=== PATIENT | female | born 1945 | race Caucasian/White ===

== ENCOUNTER 2023-05-13 09:11 | Inpatient (IN) | payer OTHER ==
[2023-05-13 09:42] LABS: #Eosinphils 0.2 thou/uL (0.0-0.7); #Monocytes 0.6 thou/uL (0.11-0.59); %Basophils 0.5 % (0.0-1.0); %Eosinophils 2.6 % (0.0-10.0); %Lymphocytes 21.3 % (21.0-51.0); %Monocytes 6.5 % (0.0-10.0); %Neutrophils 68.2 % (42.0-75.0); Hemoglobin 12.6 g/dL (12.0-16.0); Mean Corpuscular HGB CONC 32.3 g/dL (32.0-36.0); Mean Corpuscular Hemoglobin 30.4 pg (27.0-31.0); Mean Platelet Volume 10.1 fL (7.4-10.4); Platelet Count 261 10x3/uL (130-400); RBC Distribution Width 12.6 % (11.5-14.5); Red Blood Cell (RBC) Count 4.15 mill/uL (4.20-5.40); White Blood Cell (WBC) Count 8.8 10x3/uL (4.8-10.8)
[2023-05-13] MEDS ORDERED: Meclizine HCl 25 MG TAB ONE (10:23)
[2023-05-13 10:53] LABS: ALT (SGPT) 8 U/L (8-55); AST (SGOT) 11 U/L (5-34); Albumin 4.1 g/dL (3.4-4.8); Alkaline Phosphatase 88 U/L (40-110); Anion Gap 15 mmol/L (10-20); BUN (Urea Nitrogen) 18 mg/dL (9.8-20.1); Bilirubin, Total 0.4 mg/dL (0.2-1.2); Calc. Creatinine Clearance 0 mL/min (70-130); Calcium 9.8 mg/dL (7.8-10.44); Carbon Dioxide 23 mmol/L (23-31); Estimated GFR 48; Globulin 3.2 g/dL (2.4-3.5); Glucose 117 mg/dL (83-110); Potassium 4.3 mmol/L (3.5-5.1); Protein, Total 7.3 g/dL (5.8-8.1)
[2023-05-13] MEDS ORDERED: Iopamidol-370 76% 500 ML MDV (1 ML CHARGE) ONE (10:55)
[2023-05-13 11:01] LABS: Chloride 105 mmol/L (98-107); Sodium 139 mmol/L (136-145)
[2023-05-13 11:41] LABS: Troponin I Less than 0.010 ng/mL (< 0.028)
[2023-05-13 12:49] LABS: Bacteria/HPF None Seen HPF (None Seen); Bilirubin Negative (Negative); Blood, Urine Negative (Negative); CAUTI Indications for Culture Alt mental st,lethar; Clarity Clear (Clear); Glucose, Urine (Dipstick) Normal (Negative); Ketone, Urine 10 mg/dL (Negative); Leukocyte 500 Leu/uL (Negative); Nitrite Negative (Negative); Protein, Urine (Dipstick) Negative (Neg-Trace); RBC/HPF 0-3 HPF (0-3); Specific Gravity, Urine 1.028 (1.002-1.036); Squamous Epithelial 0-3 HPF (0-3); Urobilinogen Normal mg/dL (Less than 2); pH, Urine 6.5 (5.0-9.0)
[2023-05-13 12:54] LABS: Urine Culture Reflex Yes Yes
[2023-05-13] MEDS ORDERED: Ondansetron ODT 4 MG TAB PO PRN (13:06)
[2023-05-13] MEDS ORDERED: Ondansetron PF 4 MG/2 ML Vial IVP PRN (13:06)
[2023-05-13] MEDS ORDERED: Meclizine HCl 25 MG TAB PO PRN (13:10)
[2023-05-13] MEDS ORDERED: Sodium Chloride 0.9% 1,000 ML IV SCH (13:15)
[2023-05-13] MEDS ORDERED: Aspirin 81 mg Enteric Coated Tablet PO SCH (13:15)
[2023-05-13] MEDS ORDERED: HumaLOG 300 UNITS/3 ML VIAL SC PRN ×2 (13:23)
[2023-05-13] MEDS ORDERED: Dextrose 5% in Water 1,000 ML IV PRN (13:23)
[2023-05-13] MEDS ORDERED: Glucagon 1 MG/ML KIT IM PRN (13:23)
[2023-05-13] MEDS ORDERED: Dextrose 50% Abboject 50 ML SYRINGE SLOW IVP PRN (13:23)
[2023-05-13 13:45] LABS: Hemoglobin A1c 5.5 % (4.0-6.0)
[2023-05-13] MEDS ORDERED: Aspirin Chewable 81 MG TAB ONE (14:51)
[2023-05-13 18:41] VITALS: BMI 26.6
[2023-05-13] MEDS ORDERED: Labetalol HCl 100 MG/20 ML VIAL SLOW IVP SCH (20:30)
[2023-05-13] MEDS: Acetaminophen 325 MG TAB PO PRN (20:51)
[2023-05-13] MEDS: Atorvastatin Calcium 40 MG TAB PO SCH (20:52)
[2023-05-14 04:48] LABS: #Basophils 0.1 thou/uL (0.0-0.2); #Eosinphils 0.3 thou/uL (0.0-0.7); #Monocytes 0.8 thou/uL (0.11-0.59); #Neutrophils 3.3 thou/uL (1.40-6.50); %Basophils 0.7 % (0.0-1.0); %Eosinophils 3.5 % (0.0-10.0); %Lymphocytes 40.9 % (21.0-51.0); %Monocytes 10.2 % (0.0-10.0); %Neutrophils 44.3 % (42.0-75.0); Hematocrit 35.4 % (36.0-47.0); Hemoglobin 11.5 g/dL (12.0-16.0); Mean Corpuscular HGB CONC 32.5 g/dL (32.0-36.0); Mean Corpuscular Hemoglobin 30.3 pg (27.0-31.0); Mean Corpuscular Volume 93.2 fl (78.0-98.0); Platelet Count 221 10x3/uL (130-400); RBC Distribution Width 12.7 % (11.5-14.5); White Blood Cell (WBC) Count 7.3 10x3/uL (4.8-10.8)
[2023-05-14 05:15] LABS: Anion Gap 15 mmol/L (10-20); BUN (Urea Nitrogen) 19 mg/dL (9.8-20.1); Calc. Creatinine Clearance 45 mL/min (70-130); Calcium 8.8 mg/dL (7.8-10.44); Carbon Dioxide 21 mmol/L (23-31); Cardiac Risk 3.8 (Less than 4.5); Chloride 108 mmol/L (98-107); Cholesterol 137 mg/dl (< 200 Desired); Estimated GFR 51; Glucose 99 mg/dL (83-110); HDL Cholesterol 36 mg/dL (>60 Neg Risk); LDL Cholesterol, Calculated 67 mg/dL; Potassium 3.8 mmol/L (3.5-5.1); Sodium 140 mmol/L (136-145); Triglycerides 170 mg/dL (Less than 150)
[2023-05-14] MEDS: Aspirin 81 mg Enteric Coated Tablet PO SCH (08:34)
[2023-05-14] MEDS: Lisinopril 10 MG TAB PO SCH (08:34)
[2023-05-14] MEDS: Acetaminophen 325 MG TAB PO PRN ×2 (11:53→20:46)
[2023-05-14 18:27] LABS: Troponin I Less than 0.010 ng/mL (< 0.028)
[2023-05-14] MEDS: Atorvastatin Calcium 40 MG TAB PO SCH (20:47)
[2023-05-14 20:57] LABS: Troponin I Less than 0.010 ng/mL (< 0.028)
[2023-05-15 05:30] LABS: #Basophils 0.1 thou/uL (0.0-0.2); #Eosinphils 0.3 thou/uL (0.0-0.7); #Monocytes 0.6 thou/uL (0.11-0.59); #Neutrophils 2.8 thou/uL (1.40-6.50); %Basophils 0.8 % (0.0-1.0); %Eosinophils 4.9 % (0.0-10.0); %Lymphocytes 42.8 % (21.0-51.0); %Monocytes 8.6 % (0.0-10.0); %Neutrophils 42.4 % (42.0-75.0); Hemoglobin 11.4 g/dL (12.0-16.0); Mean Corpuscular HGB CONC 32.6 g/dL (32.0-36.0); Mean Corpuscular Hemoglobin 30.8 pg (27.0-31.0); Mean Corpuscular Volume 94.6 fl (78.0-98.0); Platelet Count 181 10x3/uL (130-400); RBC Distribution Width 12.8 % (11.5-14.5); White Blood Cell (WBC) Count 6.5 10x3/uL (4.8-10.8)
[2023-05-15 06:01] LABS: Anion Gap 14 mmol/L (10-20); BUN (Urea Nitrogen) 15 mg/dL (9.8-20.1); Calc. Creatinine Clearance 59 mL/min (70-130); Calcium 8.7 mg/dL (7.8-10.44); Carbon Dioxide 22 mmol/L (23-31); Chloride 108 mmol/L (98-107); Estimated GFR 72; Glucose 87 mg/dL (83-110); Potassium 4.4 mmol/L (3.5-5.1); Sodium 140 mmol/L (136-145)
[2023-05-15] MEDS: Aspirin 81 mg Enteric Coated Tablet PO SCH (11:44)
[2023-05-15] MEDS: Lisinopril 10 MG TAB PO SCH (11:44)
[2023-05-15] MEDS ORDERED: Regadenoson 0.4 MG/5 ML SYRINGE ONE (13:30)
[2023-05-15] MEDS: Atorvastatin Calcium 40 MG TAB PO SCH (20:04)
[2023-05-15] MEDS: Acetaminophen 325 MG TAB PO PRN (23:59)
[2023-05-16 05:32] LABS: #Basophils 0.1 thou/uL (0.0-0.2); #Eosinphils 0.3 thou/uL (0.0-0.7); #Monocytes 0.6 thou/uL (0.11-0.59); %Basophils 0.7 % (0.0-1.0); %Eosinophils 4.7 % (0.0-10.0); %Lymphocytes 44.6 % (21.0-51.0); %Monocytes 7.9 % (0.0-10.0); %Neutrophils 41.5 % (42.0-75.0); Hematocrit 36.9 % (36.0-47.0); Hemoglobin 11.9 g/dL (12.0-16.0); Mean Corpuscular HGB CONC 32.2 g/dL (32.0-36.0); Mean Corpuscular Hemoglobin 29.9 pg (27.0-31.0); Mean Corpuscular Volume 92.7 fl (78.0-98.0); Mean Platelet Volume 10.1 fL (7.4-10.4); Platelet Count 240 10x3/uL (130-400); RBC Distribution Width 12.5 % (11.5-14.5); Red Blood Cell (RBC) Count 3.98 mill/uL (4.20-5.40); White Blood Cell (WBC) Count 7.1 10x3/uL (4.8-10.8)
[2023-05-16 05:56] LABS: Anion Gap 13 mmol/L (10-20); BUN (Urea Nitrogen) 18 mg/dL (9.8-20.1); Calc. Creatinine Clearance 49 mL/min (70-130); Calcium 9.2 mg/dL (7.8-10.44); Carbon Dioxide 24 mmol/L (23-31); Chloride 106 mmol/L (98-107); Estimated GFR 57; Glucose 96 mg/dL (83-110); Sodium 139 mmol/L (136-145)
[2023-05-16] MEDS: Lisinopril 10 MG TAB PO SCH (09:44)
[2023-05-16] MEDS: Aspirin 81 mg Enteric Coated Tablet PO SCH (09:44)
[2023-05-16] MEDS: Atorvastatin Calcium 40 MG TAB PO SCH (20:19)
[2023-05-16] MEDS: Acetaminophen 325 MG TAB PO PRN (20:25)
[2023-05-17 04:35] LABS: #Basophils 0.1 thou/uL (0.0-0.2); #Eosinphils 0.4 thou/uL (0.0-0.7); #Monocytes 0.7 thou/uL (0.11-0.59); %Basophils 0.7 % (0.0-1.0); %Eosinophils 5.1 % (0.0-10.0); %Lymphocytes 45.5 % (21.0-51.0); %Monocytes 8.5 % (0.0-10.0); %Neutrophils 39.4 % (42.0-75.0); Hematocrit 37.1 % (36.0-47.0); Hemoglobin 12.3 g/dL (12.0-16.0); Mean Corpuscular HGB CONC 33.2 g/dL (32.0-36.0); Mean Corpuscular Hemoglobin 30.7 pg (27.0-31.0); Mean Corpuscular Volume 92.5 fl (78.0-98.0); Mean Platelet Volume 10.1 fL (7.4-10.4); Platelet Count 258 10x3/uL (130-400); RBC Distribution Width 12.5 % (11.5-14.5); Red Blood Cell (RBC) Count 4.01 mill/uL (4.20-5.40); White Blood Cell (WBC) Count 7.6 10x3/uL (4.8-10.8)
[2023-05-17 05:00] LABS: Anion Gap 13 mmol/L (10-20); BUN (Urea Nitrogen) 22 mg/dL (9.8-20.1); Calc. Creatinine Clearance 55 mL/min (70-130); Calcium 9.5 mg/dL (7.8-10.44); Carbon Dioxide 25 mmol/L (23-31); Chloride 105 mmol/L (98-107); Estimated GFR 65; Glucose 95 mg/dL (83-110); Potassium 3.8 mmol/L (3.5-5.1); Sodium 139 mmol/L (136-145)
[2023-05-17] MEDS: Lisinopril 10 MG TAB PO SCH (06:38)
[2023-05-17] MEDS: Aspirin 81 mg Enteric Coated Tablet PO SCH (06:38)
[2023-05-17] MEDS ORDERED: fentaNYL 50 mcg/mL 1 mL Vial ONE (08:46)
[2023-05-17] MEDS ORDERED: Midazolam HCl 2 mg/2 ml Vial ONE (08:46)
[2023-05-17] MEDS ORDERED: Lidocaine 1% (PF) 30 ML VIAL ONE (08:46)
[2023-05-17] MEDS ORDERED: Heparin 10,000 UNITS/ 10 ML VIAL ONE (08:46)
[2023-05-17] MEDS ORDERED: Nitroglycerin 50 MG/250 ML BOT 0 ML ONE (08:47)
[2023-05-17] MEDS ORDERED: Protamine Sulfate 50 MG/5 ML VIAL ONE (09:26)
[2023-05-17] MEDS ORDERED: Sodium Chloride 0.9% 200 ML IV PRN (09:40)
[2023-05-17] MEDS ORDERED: Acetaminophen/Codeine 30-300mg Tablet PO PRN ×2 (09:40)
[2023-05-17] MEDS ORDERED: Nitroglycerin 0.4 MG TAB (25 Tab Bottle) SL PRN (09:40)
[2023-05-17] MEDS ORDERED: Sodium Chloride 0.9% 1,000 ML IV SCH (09:45)
[2023-05-17] MEDS: Acetaminophen 325 MG TAB PO PRN (12:12)
[2023-05-17] MEDS: Metoprolol Tartrate 50 MG TAB PO SCH (20:13)
[2023-05-17] MEDS: Atorvastatin Calcium 20 MG TAB PO SCH (20:13)
[2023-05-18] MEDS: Aspirin 81 mg Enteric Coated Tablet PO SCH (08:34)
[2023-05-18] MEDS: Metoprolol Tartrate 50 MG TAB PO SCH ×2 (08:34→21:16)
[2023-05-18] MEDS: LevoFLOXacin 750 mg/D5W 750 MG in Premix 1 BAG IVPB SCH (14:07)
[2023-05-18] MEDS: Atorvastatin Calcium 20 MG TAB PO SCH (21:16)
[2023-05-18] MEDS ORDERED: Ondansetron PF 4 MG/2 ML Vial IVP SCH (23:30)
[2023-05-19] MEDS: Metoprolol Tartrate 50 MG TAB PO SCH ×2 (09:35→20:25)
[2023-05-19] MEDS: Aspirin 81 mg Enteric Coated Tablet PO SCH (09:35)
[2023-05-19] MEDS: LevoFLOXacin 750 mg/D5W 750 MG in Premix 1 BAG IVPB SCH (14:39)
[2023-05-19] MEDS ORDERED: Meclizine HCl 25 MG TAB PO SCH (15:45)
[2023-05-19] MEDS: Atorvastatin Calcium 20 MG TAB PO SCH (20:25)
[2023-05-19] MEDS: Meclizine HCl 25 MG TAB PO SCH (22:04)
[2023-05-20] MEDS: Meclizine HCl 25 MG TAB PO SCH ×2 (06:35→14:42)
[2023-05-20] MEDS: Aspirin 81 mg Enteric Coated Tablet PO SCH (08:52)
[2023-05-20] MEDS: Metoprolol Tartrate 50 MG TAB PO SCH (08:52)
[2023-05-20 11:37] VITALS: BP 121/59; TEMP 97.8
== END 2023-05-20 15:30 | disposition home or self-care (01) | DRG 149 ==
LOC: ERS 09:11 → ERHOLD 13:06 → 2SW 17:06 → EEVIPCON 05-15 14:45 → OBSVTOIN 05-15 14:45
PROVIDERS: ADMIT Family Medicine; ATTEND Family Medicine
PROC: 4A023N7 Measurement of Cardiac Sampling and Pressure, Left Heart, Percutaneous Approach (ICD-10-PCS; principal; 2023-05-17)
PROC: B2111ZZ Fluoroscopy of Multiple Coronary Arteries using Low Osmolar Contrast (ICD-10-PCS; 2023-05-17)
PROC: B2151ZZ Fluoroscopy of Left Heart using Low Osmolar Contrast (ICD-10-PCS; 2023-05-17)
DX: H83.09 Labyrinthitis, unspecified ear (principal); I47.20 Ventricular tachycardia, unspecified; R55 Syncope and collapse; Z79.899 Other long term (current) drug therapy; I10 Essential (primary) hypertension; E11.9 Type 2 diabetes mellitus without complications; M81.0 Age-related osteoporosis without current pathological fracture; Z90.710 Acquired absence of both cervix and uterus; Z90.89 Acquired absence of other organs; Z90.49 Acquired absence of other specified parts of digestive tract; Z79.82 Long term (current) use of aspirin; Z82.49 Family history of ischemic heart disease and other diseases of the circulatory system; I25.10 Atherosclerotic heart disease of native coronary artery without angina pectoris; I34.0 Nonrheumatic mitral (valve) insufficiency
CPT/HCPCS: 36415; 36416; 70450; 70496; 70498; 70551; 71045; 72170; 78452; 80048; 80053; 80061; 81001; 83036; 84443; 84484; 85025; 85347; 87086; 93005; 93017; 93306; 93458; 95711; 95819; 96360; 96361; 96374; 99152; 99153; A9502; C1769; G0378; J1644; J1650; J1815; J1956; J2001; J2250; J2405; J2720; J2785; J3010; J7050; Q9967

== ENCOUNTER 2023-08-23 07:39 | Outpatient (CLI) | payer OTHER | END 2023-08-23 07:40 | disposition home or self-care (01) | LOC: BICMAMMO 07:39 | PROVIDERS: ATTEND Nurse Practitioner Family | DX: Z13.820 Encounter for screening for osteoporosis (principal); M81.0 Age-related osteoporosis without current pathological fracture | CPT/HCPCS: 77080 ==

== ENCOUNTER 2024-04-24 08:24 | Emergency (ER) | payer OTHER ==
[2024-04-24 09:19] LABS: #Basophils 0.06 10x3/uL (0.0-0.2); %Basophils 0.9 % (0.0-1.0); %Lymphocytes 38.2 % (21.0-51.0); %Monocytes 8.6 % (0.0-10.0); %Neutrophils 45.5 % (42.0-75.0); Hematocrit 40.5 % (36.0-47.0); Mean Corpuscular HGB CONC 32.1 g/dL (32.0-36.0); Mean Corpuscular Hemoglobin 30.4 pg (27.0-31.0); Mean Corpuscular Volume 94.8 fL (78.0-98.0); Mean Platelet Volume 9.8 fL (7.4-10.4); Platelet Count 238 10x3/uL (130-400); RBC Distribution Width 12.5 % (11.5-14.5); Red Blood Cell (RBC) Count 4.27 mill/uL (4.20-5.40)
[2024-04-24 09:42] LABS: Troponin I Less than 0.010 ng/mL (< 0.028)
[2024-04-24 09:51] LABS: ALT (SGPT) 9 U/L (8-55); AST (SGOT) 11 U/L (5-34); Albumin 3.2 g/dL (3.4-4.8); Alkaline Phosphatase 108 U/L (40-110); Anion Gap 12 mmol/L (10-20); BUN (Urea Nitrogen) 18 mg/dL (9.8-20.1); Bilirubin, Total 0.3 mg/dL (0.2-1.2); Calc. Creatinine Clearance 0 mL/min (70-130); Calcium 8.6 mg/dL (7.8-10.44); Carbon Dioxide 24 mmol/L (23-31); Chloride 108 mmol/L (98-107); Estimated GFR 68; Globulin 2.8 g/dL (2.4-3.5); Glucose 127 mg/dL (83-110); Potassium 4.4 mmol/L (3.5-5.1); Sodium 140 mmol/L (136-145)
== END 2024-04-24 13:23 | disposition home or self-care (01) ==
LOC: EEVIPCON 08:24 → ERS 08:24
DX: R07.89 Other chest pain (principal); M79.652 Pain in left thigh; I10 Essential (primary) hypertension; Z95.5 Presence of coronary angioplasty implant and graft
CPT/HCPCS: 36415; 71045; 80053; 84484; 85025; 93005

== ENCOUNTER 2024-07-15 13:13 | Outpatient (CLI) | payer OTHER | END 2024-07-15 13:14 | disposition home or self-care (01) | LOC: BICRAD 13:13 | PROVIDERS: ATTEND Family Medicine | DX: M25.552 Pain in left hip (principal); M79.605 Pain in left leg; M81.0 Age-related osteoporosis without current pathological fracture ==

== ENCOUNTER 2024-12-20 11:37 | Observation (INO) | payer OTHER ==
[2024-12-20 12:15] LABS: #Basophils 0.06 10x3/uL (0.0-0.2); #Eosinophils 0.18 10x3/uL (0.0-0.7); #Monocytes 0.64 10x3/uL (0.11-0.59); #Neutrophils 5.11 10x3/uL (1.40-6.50); %Basophils 0.7 % (0.0-1.0); %Eosinophils 2.2 % (0.0-10.0); %Lymphocytes 26.1 % (21.0-51.0); %Monocytes 7.8 % (0.0-10.0); %Neutrophils 62.6 % (42.0-75.0); Hemoglobin 14.4 g/dL (12.0-16.0); Mean Corpuscular Hemoglobin 29.1 pg (27.0-31.0); Mean Corpuscular Volume 91.1 fL (78.0-98.0); Mean Platelet Volume 9.4 fL (7.4-10.4); Platelet Count 303 10x3/uL (130-400); RBC Distribution Width 13.6 % (11.5-14.5); Red Blood Cell (RBC) Count 4.94 mill/uL (4.20-5.40); White Blood Cell (WBC) Count 8.17 10x3/uL (4.8-10.8)
[2024-12-20 12:53] LABS: Troponin I Less than 0.010 ng/mL (< 0.028)
[2024-12-20 12:58] LABS: ALT (SGPT) 13 U/L (Less than 34); AST (SGOT) 31 U/L (11-34); Albumin 4.2 g/dL (3.1-4.5); Alkaline Phosphatase 144 U/L (40-110); Anion Gap 13 mmol/L (10-20); BUN (Urea Nitrogen) 22 mg/dL (9.8-20.1); Bilirubin, Total 0.6 mg/dL (0.3-1.2); Calc. Creatinine Clearance 0 mL/min (70-130); Calcium 9.7 mg/dL (7.8-10.44); Carbon Dioxide 26 mmol/L (23-31); Chloride 104 mmol/L (98-107); Estimated GFR 56; Globulin 3.9 g/dL (2.4-3.5); Glucose 139 mg/dL (83-110); Potassium 4.4 mmol/L (3.5-5.1); Protein, Total 8.1 g/dL (5.8-8.1); Sodium 139 mmol/L (136-145)
[2024-12-20] MEDS ORDERED: Ondansetron PF 4 MG/2 ML Vial IVP PRN (14:54)
[2024-12-20] MEDS ORDERED: Nitroglycerin 0.4 MG TAB (25 Tab Bottle) SL PRN (14:55)
[2024-12-20 18:24] LABS: Troponin I Less than 0.010 ng/mL (< 0.028)
[2024-12-20 19:29] VITALS: BMI 28.6
[2024-12-20] MEDS: Famotidine 20 MG TAB PO SCH (20:21)
[2024-12-20] MEDS: Atorvastatin Calcium 40 MG TAB PO SCH (20:21)
[2024-12-20] MEDS: Metoprolol Tartrate 25 MG TAB PO SCH (20:21)
[2024-12-20] MEDS: Nitroglycerin 2% Ointment 1 INCH/1 GM Packet TOP SCH (20:30)
[2024-12-20 22:04] LABS: Troponin I Less than 0.010 ng/mL (< 0.028)
[2024-12-21 05:55] LABS: #Basophils 0.07 10x3/uL (0.0-0.2); #Eosinophils 0.22 10x3/uL (0.0-0.7); #Monocytes 0.87 10x3/uL (0.11-0.59); #Neutrophils 3.94 10x3/uL (1.40-6.50); %Basophils 0.8 % (0.0-1.0); %Eosinophils 2.6 % (0.0-10.0); %Lymphocytes 38.5 % (21.0-51.0); %Monocytes 10.4 % (0.0-10.0); %Neutrophils 47.1 % (42.0-75.0); Hemoglobin 12.4 g/dL (12.0-16.0); Mean Corpuscular HGB CONC 31.8 g/dL (32.0-36.0); Mean Corpuscular Volume 91.1 fL (78.0-98.0); Mean Platelet Volume 9.5 fL (7.4-10.4); Platelet Count 254 10x3/uL (130-400); RBC Distribution Width 13.7 % (11.5-14.5); Red Blood Cell (RBC) Count 4.28 mill/uL (4.20-5.40); White Blood Cell (WBC) Count 8.38 10x3/uL (4.8-10.8)
[2024-12-21 06:27] LABS: Anion Gap 10 mmol/L (10-20); BUN (Urea Nitrogen) 26 mg/dL (9.8-20.1); Calc. Creatinine Clearance 61 mL/min (70-130); Calcium 9.1 mg/dL (7.8-10.44); Carbon Dioxide 25 mmol/L (23-31); Chloride 108 mmol/L (98-107); Estimated GFR 70; Glucose 113 mg/dL (83-110); Sodium 139 mmol/L (136-145)
[2024-12-21] MEDS: Aspirin Chewable 81 MG TAB PO SCH (08:55)
[2024-12-21] MEDS: Enoxaparin 40 MG (0.4 mL) SYRINGE SC SCH (08:55)
[2024-12-21] MEDS ORDERED: Regadenoson 0.4 MG/5 ML SYRINGE ONE (11:23)
[2024-12-21 13:05] VITALS: BP 137/68; TEMP 97.5
[2024-12-21] MEDS: Acetaminophen 325 MG TAB PO PRN (13:08)
[2024-12-21] MEDS ORDERED: Pantoprazole 40 MG DR.TAB PO SCH (21:00)
[2024-12-21] MEDS ORDERED: Non-Formulary Item 1 EACH (Omeprazole [Omeprazole] 20 MG Capsule.Dr) PO SCH (21:00)
[2024-12-22] MEDS ORDERED: Amlodipine 5 MG TAB PO SCH (09:00)
[2024-12-22] MEDS ORDERED: DULoxetine 60 MG CAP PO SCH (09:00)
[2024-12-25] MEDS ORDERED: Ergocalciferol 1.25 MG(50,000 UNITS) CAP PO SCH (09:00)
== END 2024-12-21 15:00 ==
LOC: ERS 11:37 → ERHOLD 14:57 → OBS 18:44
PROVIDERS: ADMIT Internal Medicine; ATTEND Emergency Medicine
PROC: B24BZZZ Ultrasonography of Heart with Aorta (ICD-10-PCS; principal; 2024-12-21)
DX: R07.89 Other chest pain (principal); I10 Essential (primary) hypertension; I48.91 Unspecified atrial fibrillation; I25.10 Atherosclerotic heart disease of native coronary artery without angina pectoris; I34.0 Nonrheumatic mitral (valve) insufficiency; Z95.5 Presence of coronary angioplasty implant and graft; Z90.710 Acquired absence of both cervix and uterus; Z90.49 Acquired absence of other specified parts of digestive tract; Z90.89 Acquired absence of other organs; Z79.82 Long term (current) use of aspirin; Z79.899 Other long term (current) drug therapy
CPT/HCPCS: 36415; 71045; 78452; 80048; 80053; 83880; 84484; 85025; 93005; 93017; 93306; 96372; A9502; G0378; J1650; J2785

== ENCOUNTER 2025-01-25 07:01 | Inpatient (IN) | payer OTHER ==
[2025-01-25] MEDS ORDERED: Ondansetron PF 4 MG/2 ML Vial ONE (07:12)
[2025-01-25] MEDS ORDERED: Acetaminophen 500 MG TAB ONE (07:19)
[2025-01-25 07:42] LABS: #Basophils 0.07 10x3/uL (0.0-0.2); #Eosinophils 0.19 10x3/uL (0.0-0.7); #Monocytes 0.90 10x3/uL (0.11-0.59); #Neutrophils 15.74 10x3/uL (1.40-6.50); %Basophils 0.3 % (0.0-1.0); %Eosinophils 0.9 % (0.0-10.0); %Lymphocytes 16.5 % (21.0-51.0); %Monocytes 4.3 % (0.0-10.0); %Neutrophils 76.1 % (42.0-75.0); Hematocrit 38.8 % (36.0-47.0); Hemoglobin 12.8 g/dL (12.0-16.0); Mean Corpuscular Hemoglobin 30.2 pg (27.0-31.0); Mean Corpuscular Volume 91.5 fL (78.0-98.0); Platelet Count 241 10x3/uL (130-400); Red Blood Cell (RBC) Count 4.24 mill/uL (4.20-5.40); White Blood Cell (WBC) Count 20.72 10x3/uL (4.8-10.8)
[2025-01-25 07:55] LABS: Anion Gap 16 mmol/L (10-20); BUN (Urea Nitrogen) 12 mg/dL (9.8-20.1); Calc. Creatinine Clearance 0 mL/min (70-130); Calcium 9.2 mg/dL (7.8-10.44); Carbon Dioxide 24 mmol/L (23-31); Chloride 104 mmol/L (98-107); Glucose 211 mg/dL (83-110); Potassium 3.2 mmol/L (3.5-5.1); Sodium 141 mmol/L (136-145)
[2025-01-25 08:09] LABS: INR-International Normal Ratio 1.0; PTT 26.7 sec (22.9-36.1); Prothrombin Time 12.7 sec (12.0-14.7)
[2025-01-25] MEDS ORDERED: Dextrose 50% Abboject 50 ML SYRINGE SLOW IVP PRN (08:48)
[2025-01-25] MEDS ORDERED: Glucagon 1 MG/ML KIT IM PRN (08:48)
[2025-01-25] MEDS ORDERED: Acetaminophen 325 MG TAB PO PRN (08:48)
[2025-01-25] MEDS ORDERED: niCARdipine 25 MG/10 ML SDV ONE (09:28)
[2025-01-25] MEDS ORDERED: Iopamidol-370 76% 500 ML MDV (1 ML CHARGE) ONE (11:00)
[2025-01-25] MEDS ORDERED: Acetaminophen 325 MG TAB PO SCH (12:45)
[2025-01-25 13:07] VITALS: BMI 28.0
[2025-01-25] MEDS ORDERED: niCARdipine 25 MG in Sodium Chloride 0.9% 250 ML 250 ML IVPB SCH ×2 (13:15→15:14)
[2025-01-25] MEDS: Acetaminophen 500 MG TAB PO SCH (13:27)
[2025-01-25] MEDS: Ondansetron PF 4 MG/2 ML Vial IVP PRN (13:29)
[2025-01-25] MEDS: Potassium Chloride 20 MEQ in Premix 1 BAG IVPB SCH (13:48)
[2025-01-25] MEDS: TETANUS, DIPHTHERIA TOX,ADULT (TDVAX) 0.5 ML VIAL IM ONE (15:46)
[2025-01-25] MEDS: HYDROcodone/Acetaminophen 5/325 mg Tablet PO SCH (15:49)
[2025-01-25] MEDS ORDERED: HYDROcodone/Acetaminophen 5/325 mg Tablet PO PRN (16:39)
[2025-01-25 18:10] LABS: Anion Gap 16 mmol/L (10-20); BUN (Urea Nitrogen) 10 mg/dL (9.8-20.1); Calc. Creatinine Clearance 74 mL/min (70-130); Calcium 9.4 mg/dL (7.8-10.44); Carbon Dioxide 23 mmol/L (23-31); Chloride 102 mmol/L (98-107); Glucose 177 mg/dL (83-110); Potassium 4.5 mmol/L (3.5-5.1); Sodium 136 mmol/L (136-145)
[2025-01-25] MEDS: Acetaminophen 325 MG TAB PO SCH (18:34)
[2025-01-25] MEDS: Pantoprazole 40 MG VIAL IVP SCH (20:33)
[2025-01-25 21:40] LABS: Anion Gap 16 mmol/L (10-20); BUN (Urea Nitrogen) 10 mg/dL (9.8-20.1); Calc. Creatinine Clearance 71 mL/min (70-130); Calcium 9.5 mg/dL (7.8-10.44); Carbon Dioxide 22 mmol/L (23-31); Chloride 105 mmol/L (98-107); Glucose 145 mg/dL (83-110); Potassium 4.5 mmol/L (3.5-5.1); Sodium 138 mmol/L (136-145)
[2025-01-26 04:08] LABS: #Basophils 0.04 10x3/uL (0.0-0.2); #Eosinophils Less than 0.03 10x3/uL (0.0-0.7); #Monocytes 0.62 10x3/uL (0.11-0.59); #Neutrophils 16.91 10x3/uL (1.40-6.50); %Basophils 0.2 % (0.0-1.0); %Eosinophils 0.0 % (0.0-10.0); %Lymphocytes 9.0 % (21.0-51.0); %Monocytes 3.2 % (0.0-10.0); %Neutrophils 87.0 % (42.0-75.0); Hematocrit 37.1 % (36.0-47.0); Hemoglobin 12.1 g/dL (12.0-16.0); Mean Corpuscular Hemoglobin 30.1 pg (27.0-31.0); Mean Corpuscular Volume 92.3 fL (78.0-98.0); Platelet Count 258 10x3/uL (130-400); Red Blood Cell (RBC) Count 4.02 mill/uL (4.20-5.40); White Blood Cell (WBC) Count 19.43 10x3/uL (4.8-10.8)
[2025-01-26] MEDS: Acetaminophen/Codeine 30-300mg Tablet PO PRN (04:28)
[2025-01-26 04:33] LABS: ALT (SGPT) 11 U/L (Less than 34); AST (SGOT) 22 U/L (11-34); Albumin 3.8 g/dL (3.1-4.5); Alkaline Phosphatase 125 U/L (40-110); Anion Gap 16 mmol/L (10-20); BUN (Urea Nitrogen) 14 mg/dL (9.8-20.1); Bilirubin, Total 0.5 mg/dL (0.3-1.2); Calc. Creatinine Clearance 52 mL/min (70-130); Calcium 9.5 mg/dL (7.8-10.44); Carbon Dioxide 24 mmol/L (23-31); Chloride 103 mmol/L (98-107); Globulin 3.3 g/dL (2.4-3.5); Glucose 161 mg/dL (83-110); Potassium 4.5 mmol/L (3.5-5.1); Sodium 138 mmol/L (136-145)
[2025-01-26] MEDS: levETIRAcetam 500 MG (5 mL) VIAL SLOW IVP SCH (10:29)
[2025-01-26] MEDS: Pantoprazole 40 MG DR.TAB PO SCH (20:36)
[2025-01-27 04:04] LABS: #Basophils 0.04 10x3/uL (0.0-0.2); #Eosinophils 0.04 10x3/uL (0.0-0.7); #Monocytes 0.95 10x3/uL (0.11-0.59); #Neutrophils 9.26 10x3/uL (1.40-6.50); %Basophils 0.3 % (0.0-1.0); %Eosinophils 0.3 % (0.0-10.0); %Lymphocytes 20.5 % (21.0-51.0); %Monocytes 7.3 % (0.0-10.0); %Neutrophils 70.8 % (42.0-75.0); Hematocrit 38.3 % (36.0-47.0); Hemoglobin 12.0 g/dL (12.0-16.0); Mean Corpuscular Hemoglobin 29.6 pg (27.0-31.0); Mean Corpuscular Volume 94.3 fL (78.0-98.0); Platelet Count 231 10x3/uL (130-400); Red Blood Cell (RBC) Count 4.06 mill/uL (4.20-5.40); White Blood Cell (WBC) Count 13.08 10x3/uL (4.8-10.8)
[2025-01-27 04:19] LABS: ALT (SGPT) 402 U/L (Less than 34); AST (SGOT) 740 U/L (11-34); Albumin 3.5 g/dL (3.1-4.5); Alkaline Phosphatase 212 U/L (40-110); Anion Gap 15 mmol/L (10-20); BUN (Urea Nitrogen) 17 mg/dL (9.8-20.1); Bilirubin, Total 1.5 mg/dL (0.3-1.2); Calc. Creatinine Clearance 64 mL/min (70-130); Calcium 9.3 mg/dL (7.8-10.44); Carbon Dioxide 23 mmol/L (23-31); Chloride 103 mmol/L (98-107); Globulin 3.2 g/dL (2.4-3.5); Glucose 127 mg/dL (83-110); Potassium 4.2 mmol/L (3.5-5.1); Sodium 137 mmol/L (136-145)
[2025-01-28 06:26] LABS: #Basophils 0.05 10x3/uL (0.0-0.2); #Eosinophils 0.10 10x3/uL (0.0-0.7); #Monocytes 0.77 10x3/uL (0.11-0.59); #Neutrophils 7.91 10x3/uL (1.40-6.50); %Basophils 0.4 % (0.0-1.0); %Eosinophils 0.9 % (0.0-10.0); %Lymphocytes 21.6 % (21.0-51.0); %Monocytes 6.7 % (0.0-10.0); %Neutrophils 69.3 % (42.0-75.0); Hematocrit 36.4 % (36.0-47.0); Hemoglobin 12.0 g/dL (12.0-16.0); Mean Corpuscular Hemoglobin 30.9 pg (27.0-31.0); Mean Corpuscular Volume 93.8 fL (78.0-98.0); Platelet Count 261 10x3/uL (130-400); Red Blood Cell (RBC) Count 3.88 mill/uL (4.20-5.40); White Blood Cell (WBC) Count 11.42 10x3/uL (4.8-10.8)
[2025-01-28 06:42] LABS: ALT (SGPT) 638 U/L (Less than 34); AST (SGOT) 529 U/L (11-34); Albumin 3.6 g/dL (3.1-4.5); Alkaline Phosphatase 292 U/L (40-110); Anion Gap 13 mmol/L (10-20); BUN (Urea Nitrogen) 17 mg/dL (9.8-20.1); Bilirubin, Total 1.1 mg/dL (0.3-1.2); Calc. Creatinine Clearance 69 mL/min (70-130); Calcium 9.3 mg/dL (7.8-10.44); Carbon Dioxide 28 mmol/L (23-31); Chloride 100 mmol/L (98-107); Globulin 3.2 g/dL (2.4-3.5); Glucose 133 mg/dL (83-110); Potassium 4.1 mmol/L (3.5-5.1); Sodium 137 mmol/L (136-145)
[2025-01-28] MEDS: hydrALAZINE 20 MG/ML VIAL SLOW IVP PRN (09:58)
[2025-01-28 12:07] VITALS: TEMP 98
[2025-01-28 13:55] VITALS: BP 130/53
== END 2025-01-28 15:46 | DRG 83 ==
LOC: ERS 07:01 → EEVIPCON 07:01 → ERHOLD 09:00 → CCU 12:15 → IMCU/EMU 01-26 10:36
PROVIDERS: ADMIT Colon & Rectal Surgery; ATTEND Colon & Rectal Surgery
DX: S06.5X9A Traumatic subdural hemorrhage with loss of consciousness of unspecified duration, initial encounter (principal); I50.32 Chronic diastolic (congestive) heart failure; I82.890 Acute embolism and thrombosis of other specified veins; S06.6X9A Traumatic subarachnoid hemorrhage with loss of consciousness of unspecified duration, initial encounter; S02.91XA Unspecified fracture of skull, initial encounter for closed fracture; S00.83XA Contusion of other part of head, initial encounter; Z90.49 Acquired absence of other specified parts of digestive tract; I16.0 Hypertensive urgency; D72.829 Elevated white blood cell count, unspecified; E87.6 Hypokalemia; E04.1 Nontoxic single thyroid nodule; I25.10 Atherosclerotic heart disease of native coronary artery without angina pectoris; E11.9 Type 2 diabetes mellitus without complications; Y92.149 Unspecified place in prison as the place of occurrence of the external cause; W01.198A Fall on same level from slipping, tripping and stumbling with subsequent striking against other object, initial encounter
CPT/HCPCS: 36415; 36416; 70450; 70496; 70498; 70553; 71045; 72125; 76376; 80048; 80053; 83036; 85025; 85610; 85730; 93306; 96374; 96375; G0390; J0360; J1953; J2405; J2470; J3480; Q9967